=== PATIENT | male | born 1970 | race Caucasian/White ===

== ENCOUNTER 2022-06-07 17:49 | Emergency (ER) | payer OTHER ==
[~2022-06-07] VITALS: Ht 177.8 cm; Wt 81.6 kg
[~2022-06-07 17:49] MED LIST: HYDR-3917 PO
[2022-06-07 17:55] VITALS: BP_SYST 152
--- NOTE | 2022-06-07 19:38 | NUR ---
UNABLE TO LOCATE PT IN WR.
--- NOTE | 2022-06-07 19:56 | NUR ---
LEFT WITHOUT BEING SEEN
== END 2022-06-07 19:56 | disposition left against medical advice (07) ==
LOC: SED 17:49
DX: H57.12 Ocular pain, left eye (principal); Z53.21 Procedure and treatment not carried out due to patient leaving prior to being seen by health care provider